=== PATIENT | male | born 1990 | race Two or more races ===

== ENCOUNTER 2019-03-26 01:50 | Emergency (ER) | payer OTHER ==
[~2019-03-26] VITALS: Ht 170.2 cm; Wt 81.6 kg
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
--- NOTE | 2019-03-26 02:40 | NUR ---
[employer] AT BEDSIDE
--- NOTE | 2019-03-26 03:00 | NUR ---
PT REFUSES TO PUT BP CUFF AND PULSE OX.
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
--- NOTE | 2019-03-26 04:00 | NUR ---
PT AMBULATED TO NURSING STATION.
--- NOTE | 2019-03-26 04:55 | NUR ---
[facility]
--- NOTE | 2019-03-26 05:42 | NUR ---
Patient discharged to home in stable condition. Written and verbal after care instructions given. Patient verbalizes understanding of instruction. Pt ambulatory with a steady gait.
[2019-03-26 05:43] VITALS: BP 106/60
== END 2019-03-26 05:44 | disposition home or self-care (01) ==
LOC: ER 01:52
DX: S40.012A Contusion of left shoulder, initial encounter (principal); S00.83XA Contusion of other part of head, initial encounter; M54.5 Low back pain; M54.6 Pain in thoracic spine; R51 Headache; V49.49XA Driver injured in collision with other motor vehicles in traffic accident, initial encounter; Y93.89 Activity, other specified; Y92.488 Other paved roadways as the place of occurrence of the external cause; Y99.8 Other external cause status
CPT/HCPCS: 70450-TC; 71045-TC; 72125-TC; 72170-TC; 73030-TC